=== PATIENT | male | born 1940 ===

== ENCOUNTER 2017-06-04 18:25 | Emergency (ER) | payer OTHER, MEDICARE ==
[2017-06-04 18:45] VITALS: TEMP 98.2; BMI 29.0
--- NOTE | 2017-06-04 18:51 | PDOC ---
History of Present Illness - General History Source: Patient Exam Limitations: No Limitations - History of Present Illness Initial Comments: 06/04/17 19:06 The patient is a 77 year old male with significant history of atrial flutter, on Eliquis and ASA, brought in by EMS for right sided nose bleed that began this evening. He states he was showering after swimming at the gym at the onset of his symptoms. He states his bleeding persisted for approximately 30-40 minutes, prompting him to activate EMS. The patient denies lightheadedness or shortness of breath. His nose bleed is improved. <Mare Gamez - Last Filed: 06/04/17 19:06> <Paul Candelaria - Last Filed: 06/06/17 07:25> - General Chief Complaint: Nasal Bleeding Stated Complaint: NOSE BLEED Time Seen by Provider: 06/04/17 18:50 Past History <Mare Gamez - Last Filed: 06/04/17 19:06> - Suicide/Smoking/Psychosocial Hx Smoking History: Never smoked Have you smoked in the past 12 months: No Drug/Substance Use Hx: No <Paul Candelaria - Last Filed: 06/06/17 07:25> - Past Medical History Allergies/Adverse Reactions: Allergies Allergy/AdvReac Type Severity Reaction Status Date / Time No Known Allergies Allergy Verified 06/04/17 18:45 Home Medications: Ambulatory Orders Apixaban [Eliquis] 5 mg PO BID 06/04/17 Aspirin [ASA -] 81 mg PO DAILY 06/04/17 Atorvastatin Ca [Lipitor] 40 mg PO HS 06/04/17 Eplerenone 25 mg PO DAILY 06/04/17 Ezetimibe [Zetia] 10 mg PO DAILY 06/04/17 Gemfibrozil [Lopid] 600 mg PO BID 06/04/17 Metoprolol Tartrate 50 mg PO BID 06/04/17 Multivit-Min/FA/Lycopen/Lutein [Centrum Silver Men Tablet] 1 unit PO DAILY 06/04 Ranitidine HCl [Zantac 75] 75 mg PO DAILY 06/04/17 Review of Systems - Review of Systems Able to Perform ROS?: Yes Comments:: 06/04/17 19:08 GENERAL/CONSTITUTIONAL: No fever or chills. No weakness. HEAD, EYES, EARS, NOSE AND THROAT: +R nose bleed. No change in vision. No ear pain or discharge. No sore throat. CARDIOVASCULAR: No chest pain or shortness of breath. RESPIRATORY: No cough, wheezing, or hemoptysis. GASTROINTESTINAL: No nausea, vomiting, diarrhea or constipation. GENITOURINARY: No dysuria, frequency, or change in urination. MUSCULOSKELETAL: No joint or muscle swelling or pain. No neck or back pain. SKIN: No rash NEUROLOGIC: No headache, vertigo, loss of consciousness, or change in strength/ sensation. ENDOCRINE: No increased thirst. No abnormal weight change. HEMATOLOGIC/LYMPHATIC: No anemia, easy bleeding, or history of blood clots. ALLERGIC/IMMUNOLOGIC: No hives or skin allergy. <Mare Gamez - Last Filed: 06/04/17 19:06> *Physical Exam - Vital Signs Last Vital Signs Temp Pulse Resp BP Pulse Ox 98.2 F 64 20 120/64 96 06/04/17 18:40 06/04/17 18:40 06/04/17 18:40 06/04/17 18:40 06/04/17 18:40 - Physical Exam Comments: 06/04/17 19:09 GENERAL: Awake, alert, and fully oriented, in no acute distress HEAD: No signs of trauma EYES: PERRLA, EOMI, sclera anicteric, conjunctiva clear ENT: +Small amount of dried blood within the right nares with irritation to the anterior septal wall, no active bleeding. Auricles normal inspection, hearing grossly normal, oropharynx clear without exudates. Moist mucosa <Mare Gamez - Last Filed: 06/04/17 19:06> - Vital Signs Last Vital Signs Temp Pulse Resp BP Pulse Ox 98.2 F 64 20 120/64 96 06/04/17 18:40 06/04/17 18:40 06/04/17 18:40 06/04/17 18:40 06/04/17 18:40 <Paul Candelaria - Last Filed: 06/06/17 07:25> ED Treatment Course - LABORATORY CBC & Chemistry Diagram: 06/04/17 19:00 06/04/17 19:00 <Paul Candelaria - Last Filed: 06/06/17 07:25> Medical Decision Making - Medical Decision Making 06/06/17 07:23 Active male was at the gym and developed a nosebleed while showering. He has had some URI symptoms and sneezing/coughing in the past few days. No history of nosebleeds in the past, although he is maintained on Eliquis and aspirin for atrial fibrillation. He also has coronary artery disease, a stent for 9 years, but no active cardiac symptoms. He denies lightheadedness, dizziness, orthostatic symptoms, chest pain, shortness of breath. Physical exam is without significant abnormality other than a small amount of dried blood in the right nasal passage and mild irritation of the anterior nasal septum. Throat is clear, and bleeding appears to have subsided spontaneously. CBC, PT PTT sent to the lab. Continue observation. Signed out to Dr. Alexander 7 PM. <Paul Candelaria - Last Filed: 06/06/17 07:25> *DC/Admit/Observation/Transfer - Attestations Scribe Attestion: 06/04/17 19:10 Documentation prepared by Mare Gamez, acting as territory sales manager medical for Paul Candelaria MD. <Mare Gamez - Last Filed: 06/04/17 19:06> <Paul Candelaria - Last Filed: 06/06/17 07:25> Diagnosis at time of Disposition: Epistaxis - Discharge Dispostion Disposition: HOME Condition at time of disposition: Stable - Referrals Referrals: Chace Main MD [Staff Physician] - - Patient Instructions Printed Discharge Instructions: Nosebleed Additional Instructions: Elevate head tonight Direct pressure to nose if bleeding recurs Return to ER if nosebleed is persistent Continue medications as prescribed Follow-up with Dr. Main group tomorrow as discussed Follow-up with your general medical doctor within the next 5-7 days
[2017-06-04 19:24] LABS: HEMOGLOBIN 13.1 GM/dl (11.7-16.9)
[2017-06-04 19:26] LABS: BASO % 0.4 % (0-2.0); EOS % 2.6 % (0-4.5); HEMATOCRIT 38.7 % (35.4-49); LYMPH % 12.8 % (8-40); MCH 29.8 pg (25.7-33.7); MEAN CELL VOLUME 87.6 fl (80-96); MEAN PLT VOLUME 8.1 fl (7.5-11.1); MONO % 8.5 % (3.8-10.2); NEUT % 75.7 % (42.8-82.8); PLATELET COUNT 207 K/MM3 (134-434); RBC 4.41 M/mm3 (4.00-5.60); RDW 14.4 % (11.9-15.9); WHITE BLOOD COUNT 7.4 K/mm3 (4.0-10.8)
[2017-06-04 19:37] LABS: INR 1.38 (0.82-1.09); PROTHROMBIN TIME (PATIENT) 15.3 SEC (10.2-13.0)
[2017-06-04 19:41] LABS: ALBUMIN 3.5 g/dl (3.5-5.0); ALK PHOS 76 U/L (32-92); ANION GAP 4 (8-16); BILIRUBIN,TOTAL 0.7 mg/dl (0.2-1.0); BLOOD UREA NITROGEN 30 mg/dl (7-18); CALCIUM 9.2 mg/dl (8.4-10.2); CHLORIDE 109 mmol/L (98-107); CO2 21 mmol/L (22-28); CREATININE 1.2 mg/dl (0.6-1.3); GLUCOSE,RANDOM 144 mg/dl (74-106); POTASSIUM 3.9 mmol/L (3.5-5.1); SGOT/AST 22 U/L (10-42); SGPT/ALT 17 U/L (10-40); SODIUM 134 mmol/L (136-145); TOT PROT 6.5 g/dl (6.4-8.3)
--- NOTE | 2017-06-04 20:27 | PDOC ---
*Physical Exam - Vital Signs Last Vital Signs Temp Pulse Resp BP Pulse Ox 98.2 F 64 20 120/64 96 06/04/17 18:40 06/04/17 18:40 06/04/17 18:40 06/04/17 18:40 06/04/17 18:40 ED Treatment Course - LABORATORY CBC & Chemistry Diagram: 06/04/17 19:00 06/04/17 19:00 - ADDITIONAL ORDERS Additional order review: Laboratory Results 06/04/17 06/04/17 19:00 19:00 PT with INR 15.3 H INR 1.38 H Sodium 134 L Potassium 3.9 Chloride 109 H Carbon Dioxide 21 L Anion Gap 4 L BUN 30 H Creatinine 1.2 Creat Clearance w eGFR 59.02 Random Glucose 144 H Calcium 9.2 Total Bilirubin 0.7 AST 22 ALT 17 Alkaline Phosphatase 76 Total Protein 6.5 Albumin 3.5 06/04/17 19:00 RBC 4.41 MCV 87.6 MCHC 34.0 RDW 14.4 MPV 8.1 Neutrophils % 75.7 Lymphocytes % 12.8 Monocytes % 8.5 Eosinophils % 2.6 Basophils % 0.4 Progress Note - Progress Note Progress Note: Care of this patient received from Dr. Crenshaw. Patient has not had any further epistaxis. Laboratory evaluation is within normal limits(INR 1.38 as would be expected with patient on Eliquis); no evidence of anemia or thrombocytopenia. Patient will be discharged with instructions to keep his head elevated and avoid any excessive warmth applied to his facial area. If he has any recurrent epistaxis he should attempt to pinch his nostrils firmly for at least 15 minutes. If he has persistent bleeding, he should return to ER. The patient and his are followed by Dr. Main of the ENT service. He will call the office tomorrow to arrange follow-up. *DC/Admit/Observation/Transfer Diagnosis at time of Disposition: Epistaxis - Discharge Dispostion Disposition: HOME Condition at time of disposition: Stable - Referrals Referrals: Chace Main MD [Staff Physician] - - Patient Instructions Printed Discharge Instructions: Nosebleed Additional Instructions: Elevate head tonight Direct pressure to nose if bleeding recurs Return to ER if nosebleed is persistent Continue medications as prescribed Follow-up with Dr. Main group tomorrow as discussed Follow-up with your general medical doctor within the next 5-7 days - Post Discharge Activity
[2017-06-04 20:50] VITALS: BP 116/74; PULSE 72
== END 2017-06-04 20:50 | disposition home or self-care (01) ==
LOC: FER 18:25
DX: R04.0 Epistaxis (principal); Z79.01 Long term (current) use of anticoagulants; I48.91 Unspecified atrial fibrillation; Z79.82 Long term (current) use of aspirin
CPT/HCPCS: 36415; 80053; 85025; 85610; 99281-25